=== PATIENT | female | born 1975 | race Caucasian/White ===

== ENCOUNTER → 2016-12-13 | Outpatient (CLI) | payer OTHER ==
[2016-12-13 14:24] LABS: BASOPHILS # (AUTO) 0.06 10*3/UL; BASOPHILS % (AUTO) 0.5 % (0-1); EOSINOPHILS % (AUTO) 5.4 % (0-8); HEMATOCRIT 38.9 % (37.0-47.0); HEMOGLOBIN 12.4 g/dL (12.0-16.0); IMM GRAN# (AUTO) 0.24 10*3/UL; LYMPHOCYTES # (AUTO) 1.38 10*3/uL; LYMPHOCYTES % (AUTO) 11.2 % (10-50); MEAN CORPUSCULAR HGB CONC 31.9 g/dL (33-37); MEAN PLATELET VOLUME 10.7 FL (7.4-12.2); MONOCYTES # (AUTO) 1.25 10*3/UL (0.3-0.8); MONOCYTES % (AUTO) 10.2 % (5-15); NEUTROPHILS # (AUTO) 8.71 10*3/UL; NEUTROPHILS % (AUTO) 70.7 % (50-80); RDW COEFFICIENT OF VARIATION 18.9 % (11.5-14.5); RED BLOOD COUNT 4.28 10^6/uL (4.20-5.40)
[2016-12-13 14:31] LABS: PLATELET MORPHOLOGY COMMENT NORMAL MORPHOLOGY (NORM)
[2016-12-13 14:47] LABS: BILIRUBIN,TOTAL 0.4 mg/dL (0.3-1.2); CALCIUM 9.6 mg/dL (8.7-10.7); CREATININE 1.3 mg/dL (0.50-1.20); POTASSIUM 4.8 meq/L (3.8-5.2); TOTAL PROTEIN 7.3 g/dL (6.1-8.0)
== END ==
LOC: MOB LAB 13:27
PROVIDERS: ATTEND Internal Medicine Hematology & Oncology
DX: C53.0 Malignant neoplasm of endocervix (principal)
CPT/HCPCS: 36415; 80053; 85025

== ENCOUNTER → 2016-12-26 | Outpatient (CLI) | payer OTHER ==
[2016-12-26 12:34] LABS: HEMATOCRIT 36.5 % (37.0-47.0); HEMOGLOBIN 11.3 g/dL (12.0-16.0); MEAN CORPUSCULAR HEMOGLOBIN 28.8 PG (27-31); MEAN PLATELET VOLUME 12.6 FL (7.4-12.2); RDW COEFFICIENT OF VARIATION 19.3 % (11.5-14.5); RED BLOOD COUNT 3.92 10^6/uL (4.20-5.40); WHITE BLOOD COUNT 17.41 10^3/uL (4.8-10.8)
[2016-12-26 12:38] LABS: CALCIUM 9.1 mg/dL (8.7-10.7); CREATININE 1.2 mg/dL (0.50-1.20); MAGNESIUM 1.9 mg/dL (1.6-2.4); POTASSIUM 4.8 meq/L (3.8-5.2)
[2016-12-26 13:10] LABS: PLATELET MORPHOLOGY COMMENT NORMAL MORPHOLOGY (NORM)
[2016-12-26 13:13] LABS: BAND NEUTROPHILS % 6 % (0-10); BASOPHILS % (MANUAL) 5 % (0-1); EOSINOPHILS % (MANUAL) 1 % (0-8); LYMPHOCYTES % (MANUAL) 10 % (10-50); MONOCYTES % (MANUAL) 8 % (0-12); NEUTROPHILS % (MANUAL) 70 % (50-80)
== END ==
LOC: MOB LAB 10:30
PROVIDERS: ATTEND Internal Medicine Hematology & Oncology
DX: C53.9 Malignant neoplasm of cervix uteri, unspecified (principal)
CPT/HCPCS: 80048; 83735; 85007

== ENCOUNTER → 2017-01-01 | Outpatient (CLI) | payer OTHER ==
--- NOTE | 2017-01-01 09:53 | DI ---
CT CHEST W/CONTRAST,01/01/2017 8:52 AM: Clinical History: Cervical cancer. Previous Exam: Two-view chest performed February 02, 2015 Findings: Multiple helically acquired CT images are obtained through the chest following a CT angiogram protoco l, and demonstrate a small spiculated mass within the right lung apex measuring 7 mm in diameter (lcu ge 20 series 2). There are a few emphysematous changes. The lung bases are clear. Within the right middle lobe, there is a vague groundglass density medially which measures 10 x 6 mm. There is no infiltrate nor effusion. The thyroid is unremarkable. There is a chest port noted in good position with the tip in the superior vena cava. There is no evidence of truncation or filling defect of the pulmonary arteries to suggest pulmonary e mbolism. There are hypodense areas within the liver which were seen on the comparison CT of the abdomen from [facility]. These are much less conspicuous than on the prior exam, and will be commented on mo re fully on the CT abdomen pelvis. Impression: 1. 6 mm spiculated mass within the right lung apex (image 20 series 2). 2. Vague groundglass density measuring 10 x 6 mm within the right middle lobe. (Image 55 series 2).
--- NOTE | 2017-01-01 11:21 | DI ---
CT ABD W/CN AND PELVIS W/CN,01/01/2017 8:52 AM: Clinical History: Cervical cancer. Previous Exam: November 02, 2016 Findings: Multiple helically acquired CT images are obtained through the abdomen and pelvis following the intra venous administration of 75 cc of Isovue 300, and demonstrate atrophy of the left kidney unchanged fr om the prior exam. There is a double-J catheter noted within the left kidney in stable position with the proximal loop in the left proximal ureter at the ureteropelvic junction, and the distal loop with in the urinary bladder. The urinary bladder is predominantly decompressed. There is moderate right stool throughout the entire colon. There is no free air nor free fluid. There is no mesenteric lymphadenopathy. Small bowel loops are unremarkable. There is a hypodense mass within the anterior segment of the right lobe of the liver measuring 2.1 cm . This is much smaller than it was on the prior exam when it measured 4.0 cm. There is also a hypodensity within the hepatic dome measuring 1.6 cm in diameter. This measured 2.3 c m on the prior exam. There was a smaller hypodense lesion within the hepatic dome on the prior exam w hich is barely visible on today's exam measuring 5 mm. The lung bases are clear. Skeletal structures are unremarkable. Impression: 1. Large amount of stool throughout colon. 2. Stable left renal atrophy. 3. Stable left double-J ureteral catheter. 4. Multiple hepatic hypodensities are consistent with metastatic foci. These have decreased in size s bahman the prior exam.
== END ==
LOC: CT 08:46
PROVIDERS: ATTEND Internal Medicine Hematology & Oncology
DX: C53.0 Malignant neoplasm of endocervix (principal)
CPT/HCPCS: 71260; 74177

== ENCOUNTER → 2017-01-03 | Outpatient (CLI) | payer OTHER ==
[2017-01-03 14:48] LABS: BASOPHILS # (AUTO) 0.06 10*3/UL; BASOPHILS % (AUTO) 0.6 % (0-1); EOSINOPHILS % (AUTO) 6.1 % (0-8); HEMATOCRIT 34.9 % (37.0-47.0); IMM GRAN# (AUTO) 0.32 10*3/UL; LYMPHOCYTES # (AUTO) 1.44 10*3/uL; LYMPHOCYTES % (AUTO) 13.7 % (10-50); MEAN CORPUSCULAR HEMOGLOBIN 29.4 PG (27-31); MEAN CORPUSCULAR HGB CONC 31.5 g/dL (33-37); MONOCYTES # (AUTO) 0.75 10*3/UL (0.3-0.8); MONOCYTES % (AUTO) 7.1 % (5-15); NEUTROPHILS # (AUTO) 7.31 10*3/UL; NEUTROPHILS % (AUTO) 69.5 % (50-80); RDW COEFFICIENT OF VARIATION 20.4 % (11.5-14.5); RED BLOOD COUNT 3.74 10^6/uL (4.20-5.40); WHITE BLOOD COUNT 10.52 10^3/uL (4.8-10.8)
[2017-01-03 14:58] LABS: BILIRUBIN,TOTAL 0.3 mg/dL (0.3-1.2); BUN/CREATININE RATIO 17.27 (6-20); CALCIUM 9.2 mg/dL (8.7-10.7); CREATININE 1.1 mg/dL (0.50-1.20); MAGNESIUM 1.8 mg/dL (1.6-2.4); POTASSIUM 4.7 meq/L (3.8-5.2); TOTAL PROTEIN 6.9 g/dL (6.1-8.0)
[2017-01-03 15:32] LABS: PLATELET MORPHOLOGY COMMENT NORMAL MORPHOLOGY (NORM)
== END ==
LOC: MOB LAB 10:40
PROVIDERS: ATTEND Internal Medicine Hematology & Oncology
DX: C53.0 Malignant neoplasm of endocervix (principal)
CPT/HCPCS: 36415; 80053; 83735; 85025; 86304

== ENCOUNTER → 2017-01-16 | Outpatient (CLI) | payer OTHER ==
[2017-01-16 13:15] LABS: BUN/CREATININE RATIO 8.33 (6-20); CALCIUM 9.1 mg/dL (8.7-10.7); CREATININE 1.2 mg/dL (0.50-1.20); MAGNESIUM 1.6 mg/dL (1.6-2.4)
[2017-01-16 13:30] LABS: HEMATOCRIT 33.5 % (37.0-47.0); HEMOGLOBIN 10.3 g/dL (12.0-16.0); MEAN CORPUSCULAR HGB CONC 30.7 g/dL (33-37); MEAN PLATELET VOLUME 12.3 FL (7.4-12.2); RDW COEFFICIENT OF VARIATION 19.5 % (11.5-14.5); RED BLOOD COUNT 3.55 10^6/uL (4.20-5.40); WHITE BLOOD COUNT 10.77 10^3/uL (4.8-10.8)
[2017-01-16 15:21] LABS: PLATELET MORPHOLOGY COMMENT NORMAL MORPHOLOGY (NORM)
[2017-01-16 15:23] LABS: BAND NEUTROPHILS % 5 % (0-10); BASOPHILS % (MANUAL) 0 % (0-1); EOSINOPHILS % (MANUAL) 1 % (0-8); LYMPHOCYTES % (MANUAL) 19 % (10-50); METAMYELOCYTES % 0 %; MONOCYTES % (MANUAL) 4 % (0-12); MYELOCYTES % 0 %; NEUTROPHILS % (MANUAL) 71 % (50-80); PROMYELOCYTES % 0 %
== END ==
LOC: MOB LAB 11:24
PROVIDERS: ATTEND Internal Medicine Hematology & Oncology
DX: C53.9 Malignant neoplasm of cervix uteri, unspecified (principal)
CPT/HCPCS: 36415; 80048; 83735; 85007

== ENCOUNTER → 2017-02-05 | Outpatient (CLI) | payer OTHER ==
[2017-02-05 13:40] LABS: HEMOGLOBIN 10.6 g/dL (12.0-16.0); MEAN CORPUSCULAR HEMOGLOBIN 30.2 PG (27-31); MEAN CORPUSCULAR HGB CONC 32.1 g/dL (33-37); MEAN PLATELET VOLUME 11.6 FL (7.4-12.2); RED BLOOD COUNT 3.51 10^6/uL (4.20-5.40)
[2017-02-05 14:12] LABS: BAND NEUTROPHILS % 4 % (0-10); BASOPHILS % (MANUAL) 1 % (0-1); EOSINOPHILS % (MANUAL) 2 % (0-8); LYMPHOCYTES % (MANUAL) 25 % (10-50); MONOCYTES % (MANUAL) 12 % (0-12); NEUTROPHILS % (MANUAL) 56 % (50-80); RBC MORPHOLOGY COMMENT NORMAL MORPHOLOGY (NORM)
[2017-02-05 14:13] LABS: PLATELET MORPHOLOGY COMMENT SEE COMMENTS (NORM); WBC MORPHOLOGY COMMENT SEE COMMENTS (NORM)
[2017-02-05 15:22] LABS: BUN/CREATININE RATIO 14.61 (6-20); CALCIUM 9.4 mg/dL (8.7-10.7); MAGNESIUM 1.8 mg/dL (1.6-2.4)
== END ==
LOC: MOB LAB 13:01
PROVIDERS: ATTEND Internal Medicine Hematology & Oncology
DX: C53.9 Malignant neoplasm of cervix uteri, unspecified (principal)
CPT/HCPCS: 36415; 80048; 83735; 85007

== ENCOUNTER → 2017-02-14 | Outpatient (CLI) | payer OTHER ==
[2017-02-14 14:30] LABS: BASOPHILS # (AUTO) 0.07 10*3/UL; BASOPHILS % (AUTO) 0.7 % (0-1); EOSINOPHILS # (AUTO) 0.24 10*3/UL; EOSINOPHILS % (AUTO) 2.5 % (0-8); HEMATOCRIT 37.4 % (37.0-47.0); HEMOGLOBIN 11.3 g/dL (12.0-16.0); LYMPHOCYTES # (AUTO) 1.47 10*3/uL; MEAN CORPUSCULAR HEMOGLOBIN 28.8 PG (27-31); MEAN CORPUSCULAR HGB CONC 30.2 g/dL (33-37); MEAN CORPUSCULAR VOLUME 95.2 FL (81-99); MEAN PLATELET VOLUME 10.6 FL (7.4-12.2); MONOCYTES # (AUTO) 0.76 10*3/UL (0.3-0.8); MONOCYTES % (AUTO) 8.1 % (5-15); NEUTROPHILS # (AUTO) 6.75 10*3/UL; NEUTROPHILS % (AUTO) 71.7 % (50-80); RED BLOOD COUNT 3.93 10^6/uL (4.20-5.40)
[2017-02-14 14:46] LABS: PLATELET MORPHOLOGY COMMENT NORMAL MORPHOLOGY (NORM); RBC MORPHOLOGY COMMENT NORMAL MORPHOLOGY (NORM); WBC MORPHOLOGY COMMENT NORMAL MORPHOLOGY (NORM)
[2017-02-14 14:57] LABS: CALCIUM 9.5 mg/dL (8.7-10.7); MAGNESIUM 1.9 mg/dL (1.6-2.4); SERUM ALBUMIN 4.3 g/dL (3.5-4.8)
== END ==
LOC: MOB LAB 13:33
PROVIDERS: ATTEND Internal Medicine Hematology & Oncology
DX: C53.9 Malignant neoplasm of cervix uteri, unspecified (principal)
CPT/HCPCS: 36415; 80053; 83735; 85025; 86304

== ENCOUNTER → 2017-02-26 | Outpatient (CLI) | payer OTHER ==
[2017-02-26 12:19] LABS: HEMATOCRIT 34.1 % (37.0-47.0); HEMOGLOBIN 10.3 g/dL (12.0-16.0); MEAN CORPUSCULAR HEMOGLOBIN 28.8 PG (27-31); MEAN CORPUSCULAR HGB CONC 30.2 g/dL (33-37); MEAN CORPUSCULAR VOLUME 95.3 FL (81-99); MEAN PLATELET VOLUME 11.2 FL (7.4-12.2); RED BLOOD COUNT 3.58 10^6/uL (4.20-5.40)
[2017-02-26 12:39] LABS: BAND NEUTROPHILS % 14 % (0-10); BASOPHILS % (MANUAL) 1 % (0-1); EOSINOPHILS % (MANUAL) 1 % (0-8); LYMPHOCYTES % (MANUAL) 13 % (10-50); MONOCYTES % (MANUAL) 19 % (0-12); NEUTROPHILS % (MANUAL) 52 % (50-80); PLATELET MORPHOLOGY COMMENT NORMAL MORPHOLOGY (NORM); RBC MORPHOLOGY COMMENT NORMAL MORPHOLOGY (NORM); WBC MORPHOLOGY COMMENT NORMAL MORPHOLOGY (NORM)
[2017-02-26 12:50] LABS: BUN/CREATININE RATIO 13.57 (6-20); CALCIUM 9.3 mg/dL (8.7-10.7); MAGNESIUM 1.8 mg/dL (1.6-2.4)
== END ==
LOC: MOB LAB 10:26
PROVIDERS: ATTEND Internal Medicine Hematology & Oncology
DX: C53.9 Malignant neoplasm of cervix uteri, unspecified (principal)
CPT/HCPCS: 36415; 80048; 83735; 85007

== ENCOUNTER → 2017-03-07 | Outpatient (CLI) | payer OTHER ==
[2017-03-07 14:03] LABS: BASOPHILS # (AUTO) 0.03 10*3/UL; BASOPHILS % (AUTO) 0.3 % (0-1); EOSINOPHILS # (AUTO) 0.35 10*3/UL; HEMATOCRIT 37.4 % (37.0-47.0); HEMOGLOBIN 11.4 g/dL (12.0-16.0); LYMPHOCYTES # (AUTO) 1.04 10*3/uL; MEAN CORPUSCULAR HEMOGLOBIN 29.2 PG (27-31); MEAN CORPUSCULAR HGB CONC 30.5 g/dL (33-37); MEAN CORPUSCULAR VOLUME 95.7 FL (81-99); MEAN PLATELET VOLUME 10.8 FL (7.4-12.2); MONOCYTES # (AUTO) 0.91 10*3/UL (0.3-0.8); MONOCYTES % (AUTO) 10.3 % (5-15); NEUTROPHILS # (AUTO) 6.43 10*3/UL; NEUTROPHILS % (AUTO) 72.9 % (50-80); RED BLOOD COUNT 3.91 10^6/uL (4.20-5.40)
[2017-03-07 14:04] LABS: PLATELET MORPHOLOGY COMMENT NORMAL MORPHOLOGY (NORM); RBC MORPHOLOGY COMMENT NORMAL MORPHOLOGY (NORM); WBC MORPHOLOGY COMMENT NORMAL MORPHOLOGY (NORM)
[2017-03-07 14:19] LABS: BUN/CREATININE RATIO 8.57 (6-20); CALCIUM 9.5 mg/dL (8.7-10.7)
== END ==
LOC: MOB LAB 13:06
PROVIDERS: ATTEND Internal Medicine Hematology & Oncology
DX: C53.0 Malignant neoplasm of endocervix (principal)
CPT/HCPCS: 36415; 80053; 83615; 83735; 85025; 86304

== ENCOUNTER → 2017-04-11 | Outpatient (CLI) | payer OTHER ==
[2017-04-11 10:05] LABS: BASOPHILS # (AUTO) 0.09 10*3/UL; BASOPHILS % (AUTO) 1.2 % (0-1); EOSINOPHILS # (AUTO) 0.82 10*3/UL; EOSINOPHILS % (AUTO) 10.9 % (0-8); HEMATOCRIT 37.3 % (37.0-47.0); HEMOGLOBIN 11.7 g/dL (12.0-16.0); LYMPHOCYTES # (AUTO) 1.06 10*3/uL; MEAN CORPUSCULAR HEMOGLOBIN 27.1 PG (27-31); MEAN CORPUSCULAR HGB CONC 31.4 g/dL (33-37); MEAN CORPUSCULAR VOLUME 86.3 FL (81-99); MEAN PLATELET VOLUME 10.2 FL (7.4-12.2); MONOCYTES # (AUTO) 0.86 10*3/UL (0.3-0.8); MONOCYTES % (AUTO) 11.4 % (5-15); NEUTROPHILS % (AUTO) 62.3 % (50-80); RED BLOOD COUNT 4.32 10^6/uL (4.20-5.40)
[2017-04-11 10:06] LABS: PLATELET MORPHOLOGY COMMENT NORMAL MORPHOLOGY (NORM); RBC MORPHOLOGY COMMENT NORMAL MORPHOLOGY (NORM); WBC MORPHOLOGY COMMENT NORMAL MORPHOLOGY (NORM)
[2017-04-11 10:23] LABS: BUN/CREATININE RATIO 14.61 (6-20); CALCIUM 9.9 mg/dL (8.7-10.7); MAGNESIUM 1.8 mg/dL (1.6-2.4); SERUM ALBUMIN 4.2 g/dL (3.5-4.8)
== END ==
LOC: MOB LAB 09:24
PROVIDERS: ATTEND Internal Medicine Hematology & Oncology
DX: C53.0 Malignant neoplasm of endocervix (principal)
CPT/HCPCS: 80053; 83735; 85025

== ENCOUNTER → 2017-04-24 | Outpatient (CLI) | payer OTHER ==
--- NOTE | 2017-04-25 10:45 | DI ---
XR KNEE CMPT 4 OR MORE VWS,04/24/2017 3:32 PM: Clinical History: Left knee injury. Previous Exam: None at this facility. Findings: 5 views of the left knee are obtained, and demonstrate anatomic alignment without fractures. The surr ounding soft tissues are unremarkable. Impression: Normal left knee.
== END ==
LOC: MOB RAD 15:42
PROVIDERS: ATTEND Nurse Practitioner Family
DX: S89.92XA Unspecified injury of left lower leg, initial encounter (principal); S80.212A Abrasion, left knee, initial encounter; W18.39XA Other fall on same level, initial encounter
CPT/HCPCS: 73564

== ENCOUNTER 2017-05-07 11:42 | Emergency (ER) | payer OTHER ==
[2017-05-07 11:55] VITALS: RESP 16; TEMP 96.6
--- NOTE | 2017-05-07 12:22 | DI ---
XR WRIST COMPLETE MIN 3VW,05/07/2017 11:51 AM: Clinical History: Status post fall Previous Exam: None at this facility. Findings: 3 views of the right wrist are obtained, and demonstrate anatomic alignment without fractures. Surrou nding soft tissues are unremarkable. Impression: No fracture.
--- NOTE | 2017-05-07 12:23 | DI ---
XR FOREARM 2VW,05/07/2017 11:51 AM: Clinical History: Status post fall Previous Exam: None at this facility. Findings: AP and lateral views of the right forearm are obtained, and demonstrate anatomic alignment without fr actures. Surrounding soft tissues are unremarkable. The right wrist joint is unremarkable as well. Impression: Normal right forearm.
--- NOTE | 2017-05-07 12:39 | PDOC ---
Upper Ext Injury HPI - General Chief Complaint: Fall Stated Complaint: TRIPPED ON STUMP AND FELL, R ARM PAIN/LEG SCRAPES Date Seen by Provider: 05/07/17 Time Seen by Provider: 12:33 - History of Present Illness Initial Comments: Patient is a very nice 42-year-old woman who unfortunately tripped and fell and some corin bushes and ended up with some minor abrasions in her lower extremities but landed on an outstretched arm and now has severe pain in her midshaft forearm. She specifically has substantial pain with any sort of pronation or supination of her hand. Her wrist as pain in it as well and even up to the elbow mostly located in the midshaft of the forearm. She denies any audible pop or snap. Have you received a tetanus shot in the past 10 years?: Yes - Patient Home Medications Home Medications: Home Medications Ibuprofen [Motrin] 1 tab PO TID #90 tab 08/04/14 Oxycodone HCl [Oxycodone Hcl Er] 20 mg PO PRN tab 02/13/15 Albuterol Sulfate [Proair Hfa] 2 puff INH Q8H #1 inhaler 04/05/15 Lorazepam 0.5 mg PO TID PRN 11/02/16 Ondansetron HCl [Zofran] 4 mg PO Q8H PRN 11/02/16 Promethazine HCl 1 tab PO Q6H PRN 11/02/16 Metoprolol Tartrate 1 tab PO BID #60 tab 11/11/16 Nortriptyline HCl 1 cap ORAL QHS #30 capsule 11/11/16 Amlodipine Besylate 1 tab PO BID #60 tab 11/21/16 Ibuprofen 1 tab PO TID PRN #90 tab 04/24/17 - Patient Allergies Allergies/Adverse Reactions: Allergies Allergy/AdvReac Type Severity Reaction Status Date / Time Penicillins Allergy Severe Anaphylaxis Verified 05/07/17 11:48 azithromycin [From Zithromax] Allergy Unknown Anaphylaxis Verified 05/07/17 11: 48 cephalexin Allergy Anaphylaxis Verified 05/07/17 11:48 cephalexin monohydrate Allergy Anaphylaxis Verified 05/07/17 11:48 [From Keflex] clindamycin AdvReac Intermediate vomiting Verified 05/07/17 11:48 latex AdvReac Intermediate Rash Verified 05/07/17 11:48 Past Medical History - heen HEENT History: Denies History Cardiovascular History: Hypertension Respiratory History: Asthma Gastrointestinal History: Denies History Genitourinary History: Denies History Endocrine History: Denies History Musculoskeletal History: Denies History Prosthesis or Implant: No Neurological History: Migraines Blood Disorders: Denies History Psychiatric History: Denies History History of Sexually Transmitted Diseases: No Female Reproductive History: Hysterectomy Obstetrical History: Denies History Cancer History: Ovarian, Other (please comment) Cancer Treatment / Date(s) of Treatment: current In Past Year Been Physically Harmed or Verbally Threatened: No History of MDRO: No History of Other Communicable Diseases: No Tobacco Use: Former Smoker Alcohol Use: None Substance Use Type: None Previous Surgical History: Yes Type / Date of Surgery: COMPLETE HYSTERECTOMY, LEFT UPPER CHEST MED PORT PLACEMENT, LEFT URETERAL STENT PLACEMENT x2 Anesthesia Reactions: No Malignant Hyperthermia: No Significant Family History: No pertinent family hx Past Medical History Reviewed: Reviewed - No Changes ROS - Limitations ROS Limitations: No Limitations Constitution: REPORTS: Denies Symptoms Cardiovascular: REPORTS: Denies Cardiac Symptoms Respiratory: REPORTS: Denies Resp Symptoms Upper Ext Injury Exam - General Appearance General Appearance: POSITIVE: Alert, Cooperative, No Acute Distress - Extremities Upper Extremity: POSITIVE: Other (Significant pain with palpation in the midshaft of the forearm difficult to tell if it is coming from the radius or the ulna. Substantial pain with any effort for pronation or supination of the arm. Wrist is mildly tender but mostly full range of motion without crepitance. Elbow again has mostly full range of motion without substantial pain directly in the elbow.) Upper Ext Injury Progress - Results Reviewed by me Xrays/CTs/US Reviewed by me: Yes Radiology Findings: Suspicious area in the mid shaft of the radius. - Patient's Progress MDM / ED Course: This patient has some substantial symptoms and pain she also has a nearly normal x-ray except for one small area in the mid shaft of the radius on one of the x-ray views that appear suspicious to me. I'm not confident to say for sure the fracture breath think he needs to be treated as a fracture until she seen by orthopedics and definitive management is given. Therefore we'll go ahead and place her in a splint and also give her a sling and have her follow- up with orthopedics as soon as we can arrange that. I think rest ice elevation compression and [id number] medications for pain should be adequate. Patient Care Time - Estimated PCT Patient Care Time (In Minutes): 30 Vital Signs - Recent Vital Signs Vital Signs: Vital Signs (Last 8 hours) Temp Pulse Resp BP Pulse Ox 05/07/17 11:44 96.6 F L 98 16 159/104 96 - VS Reviewed Vital Signs Reviewed: Yes Discharge Clinical Impression: Injury, forearm Qualifiers: Encounter type: initial encounter Laterality: right Qualifier Code: (S59.911A) Unspecified injury of right forearm, initial encounter Discharge Disposition: Discharged to Home Condition: Stable Patient Instructions Given at Discharge: Arm Fracture in Adults (ED) Additional Instructions: over the counter medications for pain follow up with orthopedics later today or tomorrow to evaluate your xrays and your arm. use splint until seen by orthopedics return with any worsening or other concerns Follow Up With: SELENA JACKSON [Primary Care Provider] -
== END 2017-05-07 12:41 | disposition home or self-care (01) ==
LOC: ER 11:42
DX: M79.631 Pain in right forearm (principal); M25.531 Pain in right wrist; S80.812A Abrasion, left lower leg, initial encounter; S80.811A Abrasion, right lower leg, initial encounter; W01.198A Fall on same level from slipping, tripping and stumbling with subsequent striking against other object, initial encounter
CPT/HCPCS: 29125; 73090; 73110; 99282

== ENCOUNTER → 2017-05-09 | Outpatient (CLI) | payer OTHER ==
--- NOTE | 2017-05-12 01:02 | DI ---
XR ELBOW COMPLETE MIN 3VW,05/09/2017 11:47 AM: Clinical History: Right elbow pain Previous Exam: None at this facility. Findings: AP lateral and oblique views of the right elbow are obtained, and demonstrate anatomic alignment with out fractures. There is no elbow joint effusion. Impression: No fracture. If pain persists or worsens, recommend followup imaging in 7-10 days to rule out an occult fracture.
== END ==
LOC: ORTHO 12:00
PROVIDERS: ATTEND Orthopaedic Surgery
DX: M25.521 Pain in right elbow (principal); S52.124A Nondisplaced fracture of head of right radius, initial encounter for closed fracture; W18.09XA Striking against other object with subsequent fall, initial encounter
CPT/HCPCS: 73080

== ENCOUNTER → 2017-05-15 | Outpatient (CLI) | payer OTHER ==
--- NOTE | 2017-05-15 09:04 | DI ---
XR ELBOW COMPLETE MIN 3VW,05/15/2017 8:31 AM: Clinical History: Right elbow pain. Previous Exam: May 09, 2017 Findings: 3 views of the right elbow are obtained, and demonstrate a small right radial head fracture. This inv olves the superior portion of the radial head into the radial neck. There is no involvement of the ar ticular surface. There is a small elbow joint effusion. Impression: Minimally displaced fracture of the right radial head.
== END ==
LOC: ORTHO 08:40
PROVIDERS: ATTEND Orthopaedic Surgery
DX: S52.124D Nondisplaced fracture of head of right radius, subsequent encounter for closed fracture with routine healing (principal); M25.421 Effusion, right elbow
CPT/HCPCS: 73080

== ENCOUNTER → 2017-05-26 | Outpatient (CLI) | payer OTHER ==
--- NOTE | 2017-05-26 20:08 | DI ---
RIGHT ELBOW, 05/26/2017 2:50 PM: Clinical History: Right elbow pain. Previous Exam: 05/09/2017; 05/15/2017. 3 views are submitted. There is no joint effusion. On the AP projection, there is irregularity of the cortex on the lateral aspect at the junction between the radial head and neck. On the initial exam f rom 05/09/2017 on the true lateral projection and on the AP and radial head projection on the study fr om 05/15/2017, the same irregularity is present. This patient probably had a minimally impacted fractu re of the radial head and neck along the anterolateral aspect. The remainder of the exam is normal. Reading: Probable impacted fracture of the radial head and neck. The exam is otherwise normal.
--- NOTE | 2017-05-26 20:28 | DI ---
RIGHT WRIST, 05/26/2017 2:50 PM: Clinical History: Right wrist pain. Previous Exam: 05/07/2017. 3 views are submitted. There is no acute soft tissue, osseous, or joint abnormality. There has been n o interval change. Reading: Normal right wrist exam.
== END ==
LOC: ORTHO 15:17
PROVIDERS: ATTEND Orthopaedic Surgery
DX: M25.531 Pain in right wrist (principal); M25.521 Pain in right elbow
CPT/HCPCS: 73080; 73110

== ENCOUNTER → 2017-05-30 | Outpatient (CLI) | payer OTHER ==
[2017-05-30 12:49] LABS: HEMATOCRIT 36.2 % (37.0-47.0); HEMOGLOBIN 11.2 g/dL (12.0-16.0); MEAN CORPUSCULAR HEMOGLOBIN 25.1 PG (27-31); MEAN CORPUSCULAR HGB CONC 30.9 g/dL (33-37); MEAN PLATELET VOLUME 10.7 FL (7.4-12.2); RED BLOOD COUNT 4.47 10^6/uL (4.20-5.40)
[2017-05-30 13:24] LABS: BUN/CREATININE RATIO 12.3 (6-20); CALCIUM 9.4 mg/dL (8.7-10.7); MAGNESIUM 1.9 mg/dL (1.6-2.4); SERUM ALBUMIN 3.8 g/dL (3.5-4.8)
[2017-05-30 13:41] LABS: PLATELET MORPHOLOGY COMMENT NORMAL MORPHOLOGY (NORM); RBC MORPHOLOGY COMMENT NORMAL MORPHOLOGY (NORM); WBC MORPHOLOGY COMMENT NORMAL MORPHOLOGY (NORM)
[2017-05-30 13:42] LABS: BAND NEUTROPHILS % 6 % (0-10); EOSINOPHILS % (MANUAL) 1 % (0-8); LYMPHOCYTES % (MANUAL) 18 % (10-50); MONOCYTES % (MANUAL) 8 % (0-12); NEUTROPHILS % (MANUAL) 65 % (50-80)
[2017-05-30 13:43] LABS: BASOPHILS % (MANUAL) 0 % (0-1); MYELOCYTES % 2 %
== END ==
LOC: MOB LAB 11:24
PROVIDERS: ATTEND Dermatology
DX: C56.2 Malignant neoplasm of left ovary (principal)
CPT/HCPCS: 36415; 80053; 83735; 85007; 86304

== ENCOUNTER → 2017-06-09 | Outpatient (CLI) | payer OTHER ==
--- NOTE | 2017-06-09 14:48 | DI ---
XR ELBOW COMPLETE MIN 3VW,06/09/2017 10:23 AM: Clinical History: Fracture of the head of the radius. Previous Exam: May 26, 2017 Findings: 3 views of the right elbow are obtained, and demonstrate a stable minimally displaced healing fractur e of the right distal radius. Impression: Stable healing right radial head fracture.
== END ==
LOC: ORTHO 10:32
PROVIDERS: ATTEND Orthopaedic Surgery
DX: S52.124D Nondisplaced fracture of head of right radius, subsequent encounter for closed fracture with routine healing (principal)
CPT/HCPCS: 73080

== ENCOUNTER → 2017-06-26 | Outpatient (CLI) | payer OTHER ==
[~2017-06-26] MED LIST: PEGFILGRASTIM 6 MG/0.6 ML SUBCUT ONE
== END ==
LOC: IV THERAPY 09:43
PROVIDERS: ATTEND Personal Emergency Response Attendant
DX: T45.1X5A Adverse effect of antineoplastic and immunosuppressive drugs, initial encounter (principal); C53.0 Malignant neoplasm of endocervix
CPT/HCPCS: 96372

== ENCOUNTER → 2017-07-02 | Outpatient (CLI) | payer OTHER ==
[2017-07-02 13:24] LABS: HEMATOCRIT 32.9 % (37.0-47.0); HEMOGLOBIN 10.5 g/dL (12.0-16.0); MEAN CORPUSCULAR HEMOGLOBIN 25.9 PG (27-31); MEAN CORPUSCULAR HGB CONC 31.9 g/dL (33-37); MEAN CORPUSCULAR VOLUME 81.2 FL (81-99); MEAN PLATELET VOLUME 12.7 FL (7.4-12.2); RED BLOOD COUNT 4.05 10^6/uL (4.20-5.40)
[2017-07-02 13:29] LABS: BUN/CREATININE RATIO 13.33 (6-20); CALCIUM 9.6 mg/dL (8.7-10.7); MAGNESIUM 1.7 mg/dL (1.6-2.4)
[2017-07-02 14:00] LABS: WBC MORPHOLOGY COMMENT NORMAL MORPHOLOGY (NORM)
[2017-07-02 14:01] LABS: PLATELET MORPHOLOGY COMMENT SEE COMMENTS (NORM); RBC MORPHOLOGY COMMENT SEE COMMENTS (NORM)
[2017-07-02 14:03] LABS: BAND NEUTROPHILS % 0 % (0-10); BASOPHILS % (MANUAL) 1 % (0-1); EOSINOPHILS % (MANUAL) 0 % (0-8); LYMPHOCYTES % (MANUAL) 30 % (10-50); METAMYELOCYTES % 0 %; MONOCYTES % (MANUAL) 9 % (0-12); MYELOCYTES % 0 %; NEUTROPHILS % (MANUAL) 60 % (50-80); PROMYELOCYTES % 0 %
== END ==
LOC: MOB LAB 11:44
PROVIDERS: ATTEND Urology
DX: N13.5 Crossing vessel and stricture of ureter without hydronephrosis (principal); C53.0 Malignant neoplasm of endocervix
CPT/HCPCS: 36415; 80048; 83735; 85007

== ENCOUNTER → 2017-07-11 | Outpatient (CLI) | payer OTHER ==
[2017-07-11 14:33] LABS: BASOPHILS # (AUTO) 0.07 10*3/UL; BASOPHILS % (AUTO) 0.9 % (0-1); EOSINOPHILS # (AUTO) 0.33 10*3/UL; EOSINOPHILS % (AUTO) 4.1 % (0-8); HEMATOCRIT 37.5 % (37.0-47.0); HEMOGLOBIN 11.5 g/dL (12.0-16.0); LYMPHOCYTES # (AUTO) 1.39 10*3/uL; MEAN CORPUSCULAR HEMOGLOBIN 25.6 PG (27-31); MEAN CORPUSCULAR HGB CONC 30.7 g/dL (33-37); MEAN CORPUSCULAR VOLUME 83.5 FL (81-99); MONOCYTES # (AUTO) 0.82 10*3/UL (0.3-0.8); MONOCYTES % (AUTO) 10.2 % (5-15); NEUTROPHILS % (AUTO) 66.9 % (50-80); RED BLOOD COUNT 4.49 10^6/uL (4.20-5.40)
[2017-07-11 14:44] LABS: BUN/CREATININE RATIO 8.46 (6-20); CALCIUM 9.8 mg/dL (8.7-10.7)
[2017-07-11 15:23] LABS: WBC MORPHOLOGY COMMENT NORMAL MORPHOLOGY (NORM)
[2017-07-11 15:24] LABS: PLATELET MORPHOLOGY COMMENT NORMAL MORPHOLOGY (NORM); RBC MORPHOLOGY COMMENT SEE COMMENTS (NORM)
== END ==
LOC: MOB LAB 12:07
PROVIDERS: ATTEND Internal Medicine Hematology & Oncology
DX: C53.0 Malignant neoplasm of endocervix (principal)
CPT/HCPCS: 36415; 80053; 83735; 85025; 86304